=== PATIENT | male | born 1985 | race Caucasian/White ===

== ENCOUNTER 2024-03-16 06:06 | Day surgery (SDC) | payer OTHER ==
[2024-03-16] MEDS: Lactated Ringers 1,000 ML IV SCH (06:26)
[2024-03-16] MEDS: Pepcid 20 MG PO ONE (06:27)
[2024-03-16] MEDS: celeBREX 100 MG PO ONE (06:27)
[2024-03-16] MEDS: NEURONTIN PO ONE (06:27)
[2024-03-16] MEDS: Decadron 4 MG PO ONE (06:27)
[2024-03-16] MEDS: TYLENOL EXTRA STRENGTH 500 MG PO ONE (06:27)
[2024-03-16 06:35] LABS: Hemoglobin 13.1 g/dL (13.7-17.5); Mean Cell Volume 82.6 fL (79.0-92.2); Mean Corpuscular Hemoglobin 27.8 pg (25.7-32.2); Mean Corpuscular Hgb Concent. 33.6 g/dL (32.3-36.5); Mean Platelet Volume 9.3 fL (9.4-12.4); Platelet Count 203 x10^3/uL (163-337); Red Blood Count 4.72 x10^6/uL (4.63-6.08); Red Cell Distribution Width 14.7 % (11.6-14.4); White Blood Count 7.7 x10^3/uL (4.23-9.07)
[2024-03-16] MEDS ORDERED: VANCOCIN INJECTION IV ONE (06:46)
[2024-03-16] MEDS ORDERED: Epinephrine Preservative Free 1 MG/ML ONE (06:46)
[2024-03-16 06:52] LABS: ALBUMIN 4.2 g/dL (3.5-5.0); ANION GAP 11.8 MEQ/L (5-15); BILIRUBIN,TOTAL 0.7 mg/dL (0.2-1.3); Calcium 9.2 mg/dL (8.4-10.2); Creatinine 1 1.03 mg/dL (0.66-1.25); EST GLOMERULAR FILTRATION RATE 96.6 ML/MIN; Potassium 3.6 mmol/L (3.5-5.1); Total Protein 7.4 g/dL (6.3-8.2)
[2024-03-16] MEDS ORDERED: DIPRIVAN 200 MG/20 ML IV ONE (06:53)
[2024-03-16] MEDS ORDERED: ROCURONIUM BROMIDE IV ONE (06:53)
[2024-03-16] MEDS ORDERED: Versed 2 MG/2 ML Injection ONE (06:53)
[2024-03-16 06:55] VITALS: RESP 16
[2024-03-16] MEDS ORDERED: EXPAREL 133 MG/10 ML VIAL IJ ONE (07:13)
[2024-03-16] MEDS ORDERED: Marcaine Mpf 0.5% Vial 30 Ml ONE (07:16)
[2024-03-16] MEDS ORDERED: Xylocaine-Mpf 2% 5 Ml Vial ONE (07:17)
[2024-03-16] MEDS: KEFZOL 1 GM** 3 G in Sodium Chloride 0.9% 50 ML 50 ML IV ONE (07:25)
[2024-03-16] MEDS ORDERED: SUBLIMAZE 100 MCG/2 ML ONE (08:05)
[2024-03-16] MEDS ORDERED: PHENYLEPHRINE HCL ONE (08:46)
[2024-03-16] MEDS ORDERED: Ephedrine Sulfate 50 MG/ML ONE (08:53)
--- NOTE | 2024-03-16 09:50 | XRAY ---
Indication: Left subtalar joint arthrodesis. Intraoperative fluoroscopy provided for 2 minutes 54 seconds. 14 digital spot images submitted for interpretation ultimately demonstrates 2 orthopedic screws traversing talocalcaneal joint. Correlate with intraoperative findings/report.
[2024-03-16] MEDS ORDERED: BRIDION 200MG/2ML IV ONE (09:52)
[2024-03-16 11:26] VITALS: TEMP 96.9; O2SAT 93
[2024-03-16] MEDS: Zofran 4 MG/2 ML VIAL IV STA (11:42)
[2024-03-16] MEDS: Transderm Scop 1.5MG Patch TOP ONE (11:42)
[2024-03-16 11:48] VITALS: BP 107/67; PULSE 81
--- NOTE | 2024-03-16 12:38 | XRAY ---
Two minutes and 54 seconds of fluoroscopy was used in surgery for a left subtalar joint arthrodesis.
--- NOTE | 2024-03-19 10:59 | OP ---
SURGERY DATE/TIME: 03/16/2024 2469-0522 PREOPERATIVE DIAGNOSES: 1) Osteoarthritis, subtalar joint. 2) Subtalar joint effusion. 3) Left ankle pain. 4) Difficulty with ambulation. POSTOPERATIVE DIAGNOSES: 1) Osteoarthritis, subtalar joint. 2) Subtalar joint effusion. 3) Left ankle pain. 4) Difficulty with ambulation. PROCEDURE: Subtalar joint arthrodesis, left. SURGEON: Jared Jeff DPM PRINT COLOR MATCHER: GREGORY Negron ANESTHESIA: General plus a preoperative popliteal and saphenous block. See anesthesia report for details. HEMOSTASIS: Thigh tourniquet set to 325 mmHg for a total of 72 total tourniquet minutes. ESTIMATED BLOOD LOSS: Minimal. MATERIALS: A Cherelle 6.5 x 80 and a Cherelle 6.5 x 85, 16 mm partially-threaded headed screw with 2 mL of StrataGraft Plus; 4-0 Monocryl; 3-0 nylon. INJECTABLES: See anesthesia report for details. INDICATIONS: The patient is a very pleasant 38-year-old male who presented to my service with a significant amount of ankle pain to the lateral aspect of his left foot. The patient has been worked up in regard to this issue and conservative modalities have failed. He has seen multiple providers for this issue with no long-term significant relief. An MRI was obtained demonstrating some osteoarthritis of the subtalar joint where discussion was held in regard to possible outcomes and possible options. Discussing the options, risks, and potential benefits of the procedures, the patient opted to proceed with a subtalar joint arthrodesis. The patient has been made aware of all risks, complications, and benefits of surgical intervention at this time including, but not limited to, infection, hematoma, seroma, possibility of delayed wound healing, non-wound healing, possible failure of surgical intervention, and possible need for further surgical intervention at a later date. No guarantees are provided as to the outcome of surgical intervention at this time. Plenty of time was allowed for the patient and his to ask questions which were answered to his apparent satisfaction. No guarantees are provided as to the outcome. It is at this time we decided to proceed. DESCRIPTION OF PROCEDURE AND FINDINGS: The patient was brought into the postanesthesia care unit prior to the procedure and a popliteal and saphenous block were provided until anesthesia took effect, then brought into the operating room and placed on the operating room table in the supine position. At this time, general anesthesia care was administered until the patient was adequately sedated. A well-padded thigh tourniquet was applied to the patient's left thigh. This was set to 325 mmHg. From the standpoint, the left lower extremity was prepped and draped in typical sterile fashion and lowered onto the surgical field. At this time, an Esmarch was utilized to exsanguinate the leg. After having exsanguinated the leg, the tourniquet was inflated to 325 mmHg. A linear incision was made with a 10-blade at the lateral aspect of the ankle from the tip of the fibula to the anterior process of the calcaneus. This was deepened through the soft tissue planes, making sure not to damage any neurovascular structures. Any neurovascular structures encountered along the way were either cauterized or retracted out of the surgical field. Following this, deeper dissection was carried into the subtalar joint and once identified, the cervical ligament within the subtalar joint was resected to gain adequate exposure. Distractor was placed in order to get adequate distraction and a Honey [place] and a combination of rongeurs, curettes, and osteotomes were utilized to remove all cartilage to a denuded subchondral plate. Once this was accomplished, copious amounts of sterile saline were utilized to flush the surgical site. A 2.0 mm drill was utilized to fenestrate the joint surfaces and then a curved osteotome and mallet were utilized to increase the surface area by fish scaling these joint surfaces. A 2 mL StrataGraft was then introduced into the deficit and then pinning took place utilizing K-wires and then this site was secured after checking on lateral and calcaneal axial views with 6.5 x 80 and 6.5 x 85 mm screws. Once this was accomplished, stress views were taken demonstrating no gapping of the joint. Adequate [id number] contact was felt to be achieved. There was some minimal gapping at the lateral aspect of the joint which was backfilled with the remaining portion of the 2 mL of StrataGraft. Following this, copious amounts of sterile saline were utilized to flush the surgical site, 4-0 Monocryl was utilized to coapt the subcutaneous skin edges and then 3-0 nylon was utilized in a horizontal mattress-type fashion. Following this, a dressing consisting of Betadine, Adaptic, 4 x 4, Kerlix, ABD, and a well-padded posterior splint with sugar-tong was applied to the patient's left lower extremity with the foot orthogonal relative to longitudinal axis of the leg. The patient was then reversed from anesthesia and returned to the postoperative anesthesia care unit with vital signs stable and vascular status intact. The patient handled the anesthesia as well as the procedure without significant complications. Postoperative orders as indicated in the patient's discharge chart.
== END 2024-03-16 12:35 | disposition home or self-care (01) ==
LOC: SDC 06:06
PROVIDERS: ATTEND Podiatrist Foot & Ankle Surgery
DX: M19.072 Primary osteoarthritis, left ankle and foot (principal); M25.475 Effusion, left foot; M25.572 Pain in left ankle and joints of left foot; R26.2 Difficulty in walking, not elsewhere classified
CPT/HCPCS: 28725; 36415; 73610; 76000; 76937; 80053; 85027; 93005; C1713; C1762; J0171; J0690; J2250; J2371; J2405; J2704; J3010; J3370; A9270-GY